=== PATIENT | female | born 1965 | race Caucasian/White ===

== ENCOUNTER 2021-10-30 12:16 | Emergency (ER) | payer OTHER ==
[2021-10-31] MEDS ORDERED: VIIBRYD20 MG PO (14:19)
[2021-10-31] MEDS ORDERED: NEXIUM20 MG PO (14:19)
[2021-10-31] MEDS ORDERED: LISINOPRIL20 MG PO (14:19)
== END 2021-10-30 13:25 | disposition home or self-care (01) ==
LOC: ER1 12:16
DX: F32.2 Major depressive disorder, single episode, severe without psychotic features (principal); F41.1 Generalized anxiety disorder; F17.200 Nicotine dependence, unspecified, uncomplicated
CPT/HCPCS: 99283

== ENCOUNTER 2021-10-31 13:18 | Emergency (ER) | payer OTHER ==
[~2021-10-31] VITALS: Ht 162.6 cm; Wt 90.7 kg
[2021-10-31 13:30] LABS: HEMOGLOBIN 15.4 gm/dl (12.3-15.3); RED BLOOD COUNT 4.69 M/UL (4.00-5.10); WHITE BLOOD COUNT 5.9 K/UL (4.5-11.0)
[2021-10-31 13:52] LABS: BUN/CREATININE RATIO 20 (0-10)
[2021-10-31] MEDS ORDERED: LISINOPRIL20 MG PO (14:19)
[2021-10-31] MEDS ORDERED: NEXIUM20 MG PO (14:19)
[2021-10-31] MEDS ORDERED: VIIBRYD20 MG PO (14:19)
== END 2021-10-31 23:20 | disposition home or self-care (01) ==
LOC: ER1 13:18
PROVIDERS: Emergency Medicine
DX: R40.20 Unspecified coma (principal)
CPT/HCPCS: 51701; 70450; 71045; 80053; 80307; 82140; 82550; 82553; 83735; 84484; 85025; 85610; 85730; 93005; 99285; G0480